=== PATIENT | female | born 1970 | race Caucasian/White ===

== ENCOUNTER 2020-07-12 06:48 | Day surgery (SDC) | payer OTHER ==
[~2020-07-12 06:48] MED LIST: Lactated Ringers 1,000 ML IV SCH; Sodium Chloride 0.9% 10 ML Syringe FLUSH PRN
[2020-07-12] MEDS ORDERED: Propofol 200 MG/20 ML SDV IV ONE (06:49)
[2020-07-12] MEDS ORDERED: Lidocaine 2% 5 ML SDV INJECT ONE (06:49)
[2020-07-12] MEDS ORDERED: Albuterol/Ipratropium 3.0-0.5 MG/3 ML Neb Soln NEB ONE (07:00)
--- NOTE | 2020-07-12 08:24 | PCM.OPNOTE ---
- General Post-Op/Procedure Note Date of Surgery/Procedure: 07/12/20 Operative Procedure(s): c scope with cold forcep biopsy Findings: transverse colon polyp Pre Op Diagnosis: family hx of colon ca Post-Op Diagnosis: transverse colon polyp Anesthesia Technique: TREY Primary Surgeon: Anthony Del Rio Anesthesia Provider: Jorge Bella Pathology: colon polyp Complications: None Condition: Good Free Text/Narrative:: #[id number] see dictation
--- NOTE | 2020-07-12 10:22 | OR ---
DATE OF OPERATION: 07/12/2020 SURGEON: Anthony Del Rio MD PROCEDURE PERFORMED: Colonoscopy with cold forceps biopsy. PREOPERATIVE DIAGNOSIS: Family history of colon cancer. POSTOPERATIVE DIAGNOSIS: Transverse colon polyp. INDICATIONS FOR PROCEDURE: This is a 50-year-old white female referred for a screening colonoscopy. Family history is significant for a relative with cancer of the colon. She is currently without symptoms. She was offered and accepted C-scope. DESCRIPTION OF OPERATION: After an excellent IV sedation was administered, digital rectal exam was performed. No marked abnormality was noted. Flexible colonoscope was inserted and advanced through to the cecum. The prep was excellent. The cecum was identified by usual anatomic markers. The following findings were noted. Ascending colon, unremarkable. Transverse colon, mid transverse colon 4 mm polyp, biopsied and completely obliterated with cold biopsy forceps. The remainder of the transverse colon was unremarkable. The descending colon was unremarkable. The sigmoid and rectum were unremarkable. The patient tolerated the procedure well, was taken to recovery room in good condition. Results will be sent to the patient via letter. /[id number] /FLORI MASON
== END 2020-07-12 09:06 | disposition home or self-care (01) ==
LOC: FB.SDS 06:48
PROVIDERS: ATTEND Surgery
DX: Z12.11 Encounter for screening for malignant neoplasm of colon (principal); D12.3 Benign neoplasm of transverse colon; I10 Essential (primary) hypertension; E66.01 Morbid (severe) obesity due to excess calories; Z68.43 Body mass index [BMI] 50.0-59.9, adult; Z88.6 Allergy status to analgesic agent; Z79.899 Other long term (current) drug therapy; Z80.0 Family history of malignant neoplasm of digestive organs; Z98.890 Other specified postprocedural states
CPT/HCPCS: 00812-QZ; 88305; J2704; J7120; J7620-GY